=== PATIENT | male | born 1950 | race Caucasian/White ===

== ENCOUNTER 2021-05-05 18:35 | Emergency (ER) | payer OTHER, MEDICARE, SELFPAY ==
[2021-05-05 18:36] VITALS: BP 107/52; PULSE 72; RESP 16; TEMP 36.6; O2SAT 98
--- NOTE | 2021-05-05 18:36 | PC.NURSE ---
TRAUMA ALERT CANCELLED BY DR NEWMAN
[2021-05-05 18:42] VITALS: BMI 34.8
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
[2021-05-05 19:09] VITALS: PULSE 67; RESP 13; O2SAT 93
--- NOTE | 2021-05-05 19:11 | PC.NURSE ---
Rad at bedside
[2021-05-05 19:15] VITALS: PULSE 67; RESP 13; O2SAT 93
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
[2021-05-05 19:34] LABS: Basophils # 0.1 K/mm3 (0-0.2); Basophils % 0.8 % (0.1-2.0); Eosinophils # 0.1 K/mm3 (0.0-0.4); Eosinophils % 1.8 % (0.1-12.0); Hematocrit 36.5 % (42.0-52.0); Hemoglobin 12.7 g/dL (14.1-18.0); Lymphocytes # 1.4 K/mm3 (0.7-4.5); Lymphocytes % 20.9 % (10-50); Mean Corpuscular HGB Conc 34.9 g/dL (31.8-35.4); Mean Corpuscular Hemoglobin 32.2 pg (27.0-31.2); Mean Corpuscular Volume 92.4 fl (80-94); Mean Platelet Volume 9.7 fl (7.4-10.4); Monocytes # 0.4 K/mm3 (0.1-1.0); Monocytes % 5.3 % (1.7-9.3); Neutrophils # 4.7 K/mm3 (1.8-7.8); Neutrophils % 71.2 % (37.0-80.0); Platelet Count 155 K/mm3 (142-424); Red Blood Count 3.95 M/mm3 (4.60-6.20); Red Cell Distribution Width 14.2 % (11.5-17.5); White Blood Count 6.6 K/mm3 (4.8-10.8)
[2021-05-05 19:42] LABS: Anion Gap 13.6 mEq/L (5-15); Calcium 9.7 mg/dl (8.4-10.2); Carbon Dioxide 29 mmol/L (22.0-30.0); Chloride 100 mmol/L (98-107); Creatinine Clearance Estimated 45 mL/min (50-200); Estimated Glomerular Filt Rate 27 ml/min (>60); GFR (African American) 32 ML/MIN (>60); Glucose 220 mg/dl (74-100); Potassium 3.6 mmoL/L (3.5-5.1); Sodium 139 mmol/L (136-145)
[2021-05-05 19:55] LABS: Blood Urea Nitrogen 78 mg/dl (9-20)
[2021-05-05 20:38] VITALS: PULSE 64; O2SAT 94
[2021-05-05 21:01] VITALS: BP 132/63; PULSE 62; RESP 13; O2SAT 95
[2021-05-05 21:42] VITALS: BP 139/79; PULSE 68; RESP 16; TEMP 36.6; O2SAT 95
== END 2021-05-05 21:52 | disposition still patient (30) ==
PROVIDERS: Emergency Provider Emergency Medicine
DX: S62.175A Nondisplaced fracture of trapezium [larger multangular], left wrist, initial encounter for closed fracture (principal); S30.1XXA Contusion of abdominal wall, initial encounter; S63.92XA Sprain of unspecified part of left wrist and hand, initial encounter; V58.0XXA Driver of pick-up truck or van injured in noncollision transport accident in nontraffic accident, initial encounter; Y92.488 Other paved roadways as the place of occurrence of the external cause
CPT/HCPCS: 29125; 70450; 71045; 73030; 73130; 74176; 80048; 85025; 96365; 96375; 99283; J2405